=== PATIENT | male | born 1965 | race Caucasian/White ===

== ENCOUNTER 2018-02-14 05:57 | Day surgery (SDC) | payer OTHER, SELFPAY ==
[2018-02-14] VITALS (7 sets, daily range): BP systolic 134–147; BP diastolic 89–106; PULSE 78–106; RESP 16; TEMP 36.3–36.8; O2SAT 92–98; BMI 31.1
[2018-02-14] MEDS: Cefazolin 2 GM in 0.9% Normal Saline 100 ML IV (07:30)
--- NOTE | 2018-02-14 07:30 | RAD_ITS ---
STUDY: X-RAY - LEFT KNEE REASON FOR EXAM: Arthroscopy, partial lateral meniscectomy. TECHNIQUE: 2 fluoroscopic views of the knee. COMPARISON: Radiographs 11/09/2017. FINDINGS: 2 fluoroscopic views were obtained including a view with the arthroscope overlying the lateral tibial plateau. 18.8 seconds of fluoroscopy time was used. Electronically Signed: Roge Ann MD at 11:02 EDT Tel , Service support , RAD/Knee 1 or 2 Views
--- NOTE | 2018-02-14 07:36 | OP.PCM_ITS ---
Report of Operation Date of Procedure: 02/14/18 Pre-Operative Diagnosis: left lateral meniscus tear, lat joint osteoarthritis, lateral tibial plateau stress edema, partial acl tear Post-Operative Diagnosis: same Surgery/Procedure Performed:: salk, plm, lat men repair, acl debridement, microinternal fixation left lateral tibial plateau Type of Anesthesia:: General, Local Anesthesiologist: Pj Colindres Specimen's removed: none Estimated Blood Loss (mL): none Fluids Replaced: 1000ml lr Description of Procedure: Preoperative note Is a 52-year-old male who has had lateral left knee pain for quite some time. Failed conservative treatment MRI confirms lateral meniscus tear and arthritis and a stress fracture or stress edema of his lateral tibial plateau. Risks benefits and alternatives surgery were discussed with patient. Risks including but not limited to blood loss, blood clot, infection, neurovascular injury, failure procedure, loss of limb and loss of life and need for revision surgery. Patient is aware would like proceed with left knee arthroscopy repair is indicated. Operative note Patient seen and examined in preoperative holding area. Left knee was marked. Patient was brought to the operating room and placed supine on the operating room table. Signing, anesthesia, antibiotics were administered. The left leg was prepped and draped in usual sterile fashion with a tourniquet around his upper thigh. All bony prominences well-padded SCDs placed on his contralateral limb. Act out our placement for our anterior lateral anterior medial portals. The left leg was then elevated exsanguinated and tourniquet was raised her pressure of 250 torr. Timeout was performed. We then created using 11 blade to create her anterior lateral portal. We then were able to visualize patellofemoral joint which was intact he had some loose bodies loose pieces of cartilage floating throughout. We then moved to the medial joint line created an anterior medial portal under direct visualization. We then probed the medial meniscus which was intact and stable probing as well as the medial femoral condyle and medial tibial plateau. We then moved to the AC the notch the ACL PCL were present within the notch. The ACL had partial tearing on the posterior aspect at the insertion on the lateral anterior lateral bundle. We gently resected the torn piece of ACL back to a stable rim. We then moved to our lateral joint line. The lateral meniscus had truncated at the mid anterior body. There is also tearing at the posterior horn. We resected back the unstable pieces to a stable rim. Please note the mid body was completely truncated we need to prevent further tearing of the lateral meniscus we did repair the mid body of the lateral meniscus to the capsule with 2 reverse curved 360 FasT-Fix devices. We then reinserted a probe noted we had good stable meniscus remaining. We irrigated the knee with copious amounts sterile saline. We gently debrided the tibial plateau which had grade 2 and 3 fibrillated and chondral thinning throughout. We then moved to our micro- internal fixation. Based on preoperative review of the patient's left knee MRI location of the bone marrow lesion consistent with insufficiency fracture of the lateral tibial plateau was identified. Preoperative surgical planning allow for determination of the optimal method for assessing the lesion. Intraoperatively image fluoroscopy combined with bone target instruments from [employer] were used to guide surgical instruments into the proximity of the subchondral tibial plateau fracture. [employer] acupoint injection cannula was drilled into the subchondral bone. Standard repair methodology was used to treat the subchondral bone defect in the tibial plateau laterally. We used image fluoroscopy was utilized to confirm accurate insertion of the acupoint injection cannula into the subchondral fracture. After insertion fracture stabilization was performed by injecting 1 cc of [employer] bone substitute material into the lateral tibial plateau. Image fluoroscopy was used to monitor the injection process and ensure injection of the bone substitute into the subchondral bone so that the bio material flowed into the fracture site to stabilize the fracture and facilitate fracture repair. We then moved back into the arthroscopy and visualized to make sure that we had no extravasation of the material which we did not. We further irrigated the knee with copious amounts of sterile saline. The portals were closed with interrupted 4-0 nylon stitches. Sterile dressings were applied and the brace was placed on the left knee locked in extension during ambulation and at night and 0-90 1 seated. The patient tolerated procedure well there are no complications the patient patient was transferred to the recovery room in stable condition. Postoperative note Toe-touch weightbearing left leg Follow-up in 2 weeks Hospital pharmacy has prescriptions Pictures given to Call with increased pain numbness tingling further issues arise This note was generated with [employer] dictation software. It may contain incorrect words, spelling, and punctuation that were not noted in checking the note before signing.
--- NOTE | 2018-02-14 07:36 | PCM.DC.ORTHO ---
Discharge Diet: No Restrictions - Toe-touch weightbearing left leg, brace 0-90, wear brace locked in extension at night, call with increased pain numbness tingling or further issues arise; elevate, ice, ankle pumps, follow up in 2 weeks, call with concerns Discharge Activity: May Not Drive May shower in (days): 1 Ice area for (Minutes): 20 - Every hour while awake. Weight Bearing Status: Weight bearing as tolerated Keep extremity elevated above heart level: Operative Extremity Call your doctor if your incision/area has: Continuous Slow Oozing, Sudden Increased Bleeding, Increased Pain/ Swelling, Increased Redness, Foul Smelling Discharge Call your doctor if you observe: Fever of 101 or Higher, Coldness, Increased Pain, Numbness or Tingling, Change in Color, Calf discomfort Allergies/Adverse Reactions: Allergies No Known Allergies Allergy (Verified 02/06/18 12:58) Medications to take at Discharge amlodipine 10 mg-valsartan 160 mg-hydrochlorothiazide 12.5 mg tablet 1 tab PO QDAY 11/09/17 Multivit-Min/FA/Lycopen/Lutein [Men 50 Plus Multivitamin Tab] 1 each PO DAILY 02/06/18 Ondansetron [Zofran] 8 mg PO Q8H PRN PRN #20 tab 02/14/18 Oxycodone HCl/Acetaminophen [Percocet 5/325] 1 - 2 tablet PO Q6H PRN PRN 5 Days #56 tablet 02/14/18 The following prescriptions were given: Oxycodone HCl/Acetaminophen [Percocet 5/325] 1 - 2 tablet PO Q6H PRN PRN 5 Days #56 tablet PRN Reason: Pain Ondansetron [Zofran] 8 mg PO Q8H PRN PRN #20 tab PRN Reason: Nausea Primary Care Physician: Leatha Perez [Primary Care Provider] - Please Follow Up With: Tiffanie Burdick, - [phone]
[2018-02-14] MEDS: Mupirocin Ointment 22gm Tube 1 APPLIC (08:50)
[2018-02-14] MEDS: Bupiv/Epi 0.5% Mpf 30 ML Vial (08:50)
[2018-02-14] MEDS: HYDROcodone Bitartrate/Apap 5/325 Tablet PO (10:40)
== END 2018-02-14 11:20 | disposition home or self-care (01) ==
LOC: SDC 05:57 → AC 05:58
PROVIDERS: Family Provider Nurse Practitioner; PCP Nurse Practitioner; Visit Provider Orthopaedic Surgery
PROC: 3E0U3GB Introduction of Recombinant Bone Morphogenetic Protein into Joints, Percutaneous Approach (ICD-10-PCS; CPT 0707T; principal; 2018-02-14 07:10)
DX: S83.282A Other tear of lateral meniscus, current injury, left knee, initial encounter (principal); S83.512A Sprain of anterior cruciate ligament of left knee, initial encounter; M84.462A Pathological fracture, left tibia, initial encounter for fracture; X58.XXXA Exposure to other specified factors, initial encounter; Y93.9 Activity, unspecified; Y92.9 Unspecified place or not applicable; Y99.9 Unspecified external cause status; M17.12 Unilateral primary osteoarthritis, left knee; I10 Essential (primary) hypertension; E78.00 Pure hypercholesterolemia, unspecified; Z79.899 Other long term (current) drug therapy
CPT/HCPCS: 29855; 29881; 73560; 76000; J7120; J2405

== ENCOUNTER → 2018-02-27 11:19 | Outpatient (CLI) | payer OTHER, SELFPAY ==
--- NOTE | 2018-02-27 11:20 | VDLE_ITS ---
Reason For Study: LEG PAIN RIGHT LEFT CFV is compressible, spontaneous, phasic, GSV is normal. competent and demonstrates normal CFV is compressible, spontaneous, phasic, augmentation. competent, and demonstrates normal Procedure augmentation. Exam performed in department. FV is compressible, spontaneous, phasic, A preliminary report was called and/or faxed competent and demonstrates normal to Dr. Burdick. augmentation. POP V is compressible, spontaneous, phasic, competent and demonstrates normal augmentation. T/P Trunk is compressible. PTV is compressible. LT PerV is compressible. Interpretation Summary Deep veins of the left lower extremity are patent and compressible segmentally. There is no evidence of left lower extremity deep vein thrombosis. Valvular competence appears intact within the proximal deep venous system on the left . The left greater saphenous vein appears patent and compressible segmentally. Ordering Physician: Tiffanie Burdick Referring Physician: Tiffanie Burdick Performed By: Gabi Felix RVT
== END ==
PROVIDERS: Family Provider Nurse Practitioner; PCP Nurse Practitioner; Visit Provider Orthopaedic Surgery
DX: M79.662 Pain in left lower leg (principal)
CPT/HCPCS: 93971

== ENCOUNTER → 2019-09-18 14:34 | Outpatient (CLI) | payer SELFPAY ==
--- NOTE | 2019-09-18 14:40 | CT_ITS ---
STUDY: CARDIAC CALCIUM SCORING - CT CHEST REASON FOR EXAM: Male, 54 years old. CORONARY ARTERY CALCIUM SCREENING. HIGH CHOLESTROL. RADIATION DOSAGE (If Supplied By Facility): CTDIvol = ( 12.19 ) mGy, DLP = ( 195.04 ) mGycm TECHNIQUE: Axial non-enhanced images were acquired through the heart for the sole purpose of measuring coronary artery calcium. Individualized dose optimization techniques were used for this CT. COMPARISON: None. FINDINGS: Visualized surrounding anatomy: Normal. Left Main Coronary Artery: 0 Left Anterior Descending Artery: 35.8 Left Circumflex Artery: 0 Right Coronary Artery: 0 Other: 0 Total Calcium Score: 35.8 The lungs are normal. There is no demonstrated pleural abnormality. Normal heart and pericardium. Normal mediastinum. Normal hilar regions. Normal unenhanced pulmonary arteries. Normal aorta arch and descending thoracic aorta. Normal osseous structures. There is no demonstrated abnormality of the visualized upper abdomen. CT/Limited Chest CT w/CCTA IMPRESSION: A Calcium Score of 35.8 places the patient in the approximate 63 percentile, based on the [employer] data calculator. Please go to: [email or web address]/input.[email or web address] , for a description of the calculator. Electronically Signed: Sulaiman Goodman, at 2:28 EST Tel , Service support ,
[2019-09-18 14:50] VITALS: BP 134/93; PULSE 83; RESP 16; O2SAT 97; BMI 33.9
[2019-09-18 15:05] VITALS: BP 140/89; PULSE 77
[2019-09-18] MEDS: Metoprolol Tartrate 5 MG/5 ML Vial IV (15:05)
[2019-09-18 15:09] VITALS: BP 139/90; PULSE 73; RESP 16; O2SAT 96
[2019-09-18 15:22] VITALS: BP 143/89; PULSE 74; RESP 16; O2SAT 98
--- NOTE | 2019-09-18 15:44 | CA.SCORE ---
Calcium Scoring Date of Study:: 09/18/19 Coronary Calcium Scoring: High-resolution Computed Tomographic imaging of the chest was performed on [ ], with particular attention paid to the coronary arteries. Images from the examination were analyzed for the presence and extent of coronary artery calcification , using coronary calcium quantification software. The patient tolerated the procedure well and there were no complications. The results of the coronary calcification analysis are provided below. - Findings Left Main (LM): 0 Left Anterior Descending (LAD): 35.8 Left Circumflex (LCX): 0 Right Coronary Artery (RCA): 0 Total Agatston Score: 35.8 Percentile Rankin Calcium Scoring Interpretation: 11-100 Mild plaque burden. Likely mild or minimal coronary atherosclerosis.
== END ==
PROVIDERS: Family Provider Nurse Practitioner; PCP Nurse Practitioner; Referring Provider Nurse Practitioner; Visit Provider Nurse Practitioner
DX: E78.00 Pure hypercholesterolemia, unspecified (principal); I10 Essential (primary) hypertension
CPT/HCPCS: 75571; 76380; A4216